=== PATIENT | female | born 1975 | race African-American/Black ===

== ENCOUNTER 2017-05-19 08:13 | Emergency (ER) | payer MEDICAID ==
[~2017-05-19] VITALS: Ht 162.6 cm; Wt 59.0 kg
[2017-05-19 09:38] LABS: CLARITY URINE CLOUDY (CLEAR); COLOR URINE YELLOW (YELLOW); KETONES URINE NEGATIVE (NEGATIVE); LEUKOCYTE ESTERASE URINE TRACE (NEGATIVE); NITRITE URINE NEGATIVE (NEGATIVE); OCCULT BLOOD URINE NEGATIVE (NEGATIVE); PROTEIN URINE NEGATIVE (NEGATIVE); SPECIFIC GRAVITY URINE 1.015 (1.005-1.030)
[2017-05-19 13:45] VITALS: BP 104/68
[2017-05-19] MEDS ORDERED: ACETAMINOPHEN WITH CODEINE 300/30MG TABLET PO ONE (14:15)
== END 2017-05-19 14:10 | disposition home or self-care (01) ==
LOC: ER 08:32
DX: N39.0 Urinary tract infection, site not specified (principal); N83.201 Unspecified ovarian cyst, right side
CPT/HCPCS: 76830; 76856; 81001; 81025; 99285